=== PATIENT | male | born 1985 | race Caucasian/White ===

== ENCOUNTER 2017-10-22 11:26 | Emergency (ER) | payer BC ==
[2017-10-22 13:23] LABS: BASOPHILS % (AUTO) 0.5 %; EOSINOPHILS # (AUTO) 0.3 10^3/uL (0.0-0.7); EOSINOPHILS % (AUTO) 4.1 %; HGB - HEMOGLOBIN 14.9 g/dL (14.0-18.0); LYMPHOCYTES # (AUTO) 1.2 10^3/uL (1.5-3.5); MEAN CORPUSCULAR HEMOGLOBIN 29.4 pg (27.0-31.0); MEAN CORPUSCULAR HGB CONC 34.5 g/dL (32.0-36.0); MEAN CORPUSCULAR VOLUME 85.2 fL (80.0-94.0); MEAN PLATELET VOLUME 9.9 fL (7.4-11.4); MONOCYTES # (AUTO) 0.8 10^3/uL (0.0-1.0); MONOCYTES % (AUTO) 10.4 %; NEUTROPHILS # (AUTO) 5.3 10^3/uL (1.5-6.6); PLT - PLATELET COUNT 158 10^3/uL (130-450); RED BLOOD COUNT 5.08 10^6/uL (4.70-6.10); RED CELL DISTRIBUTION WIDTH 13.1 % (12.0-15.0); WHITE BLOOD COUNT 7.7 x10^3/uL (4.8-10.8)
[2017-10-22 13:36] LABS: ALBUMIN 5.2 g/dL (3.2-5.5); ALBUMIN/GLOBULIN RATIO 1.9 (1.0-2.2); BILIRUBIN,TOTAL 1.1 mg/dL (0.2-1.0); CALCIUM 9.5 mg/dL (8.5-10.3); CREATININE 0.7 mg/dL (0.6-1.2)
--- NOTE | 2017-10-22 13:39 | ED Physician Documentation ---
PD HPI CHEST PAIN - Stated complaint Stated Complaint: CHEST TIGHTNESS/SOA - Chief complaint Chief Complaint: Cardiac - History obtained from History obtained from: Patient - History of Present Illness Timing - onset: How many days ago (several) Timing - onset during: Light activity Timing - duration: Days (several) Timing - details: Gradual onset, Waxing and waning Quality: Tightness, Aching, Pain Location: Left chest Radiation: No: Jaw, Neck, Back Improved by: Rest, Other (sitting up) Worsened by: Exertion (feels short of breath easily the past few days), Inspiration, Position (lying down). No: Palpation Associated symptoms: Shortness of air, Feeling faint / dizzy. No: Nausea, General Weakness, Palpitations, Cough Similar symptoms before: Has not had sx before Recently seen: Not recently seen, Other (he does not have PMD locally but did call to make appt with Liturgical Music Director and has appt next week.) Review of Systems Constitutional: denies: Fever, Chills, Myalgias Nose: denies: Rhinorrhea / runny nose, Congestion Throat: denies: Sore throat Cardiac: reports: Chest pain / pressure. denies: Palpitations, Pedal edema, Calf pain Respiratory: reports: Dyspnea. denies: Cough, Wheezing GI: denies: Nausea, Vomiting, Diarrhea Neurologic: denies: Generalized weakness, Near syncope (but does feel lightheaded at times), Syncope Endocrine: denies: Weight loss Immunocompromised: denies: Immunocompromised PD PAST MEDICAL HISTORY - Past Medical History Past Medical History: No Cardiovascular: None Respiratory: None Neuro: None Endocrine/Autoimmune: None - Past Surgical History Past Surgical History: No - Present Medications Home Medications: Ambulatory Orders Medication Instructions Recorded Confirmed Albuterol Sulf [Ventolin Hfa 1 - 2 puffs INH Q4HR PRN #1 inhaler 10/22/17 Inhaler] Dexamethasone [Decadron] 4 mg PO DAILY #5 tablet 10/22/17 Naproxen 375 mg PO BID #20 tablet 10/22/17 - Allergies Allergies/Adverse Reactions: Allergies Allergy/AdvReac Type Severity Reaction Status Date / Time No Known Drug Allergies Allergy Verified 10/22/17 11:45 - Social History Does the pt smoke?: No Smoking Status: Never smoker Does the pt drink ETOH?: Yes Does the pt have substance abuse?: No - Family History Family history: denies: CAD, Sudden , Venous thromboembolism - Immunizations Immunizations are current?: No - POLST Patient has POLST: No PD ED PE NORMAL - Vitals Vital signs reviewed: Yes - General General: Alert and oriented X 3, No acute distress, Well developed/nourished - HEENT HEENT: Pharynx benign - Neck Neck: Supple, no meningeal sign, No adenopathy - Cardiac Cardiac: RRR, No murmur, No rub, Other (limited bedside U/S shows normal heart size, symmetric contractions. There is slight rim of hypoechoic proximal field, but not really distal field. Could be mild effusion. ) - Respiratory Respiratory: Clear bilaterally - Abdomen Abdomen: Normal bowel sounds, Soft, Non tender, Non distended Results - Vitals Vitals: Oxygen O2 Source Room air - EKG (time done) 11:38 Rate: Rate (enter#) (61) Rhythm: NSR [place]: Normal Intervals: Normal CO QRS: Normal Ischemia: Normal ST segments, ST elevation c/w repol. No: ST elevation c/w ischemia, ST depression - Labs Labs: Laboratory Tests 10/22/17 10/22/17 10/22/17 13:10 13:10 13:10 WBC 7.7 RBC 5.08 Hgb 14.9 Hct 43.3 MCV 85.2 MCH 29.4 MCHC 34.5 RDW 13.1 Plt Count 158 MPV 9.9 Neut # 5.3 Lymph # 1.2 L [place] # 0.8 Eos # 0.3 Baso # 0.0 Absolute Nucleated RBC 0.00 Nucleated RBC % 0.0 ESR Sodium 138 Potassium 3.5 Chloride 99 L Carbon Dioxide 23 Anion Gap 16.0 H BUN 13 Creatinine 0.7 Estimated GFR (MDRD) 131 Glucose 87 Calcium 9.5 Total Bilirubin 1.1 H AST 112 H ALT 42 Alkaline Phosphatase 54 Troponin I < 0.04 C-Reactive Protein Total Protein 8.0 Albumin 5.2 Globulin 2.8 Albumin/Globulin Ratio 1.9 Lipase 21 L 10/22/17 10/22/17 13:10 13:10 WBC RBC Hgb Hct MCV MCH MCHC RDW Plt Count MPV Neut # Lymph # [place] # Eos # Baso # Absolute Nucleated RBC Nucleated RBC % ESR 4 Sodium Potassium Chloride Carbon Dioxide Anion Gap BUN Creatinine Estimated GFR (MDRD) Glucose Calcium Total Bilirubin AST ALT Alkaline Phosphatase Troponin I C-Reactive Protein < 1.0 Total Protein Albumin Globulin Albumin/Globulin Ratio Lipase - Rads (name of study) chest Radiology: Prelim report reviewed, EMP read contemporaneously (normal exam) PD MEDICAL DECISION MAKING - ED course Complexity details: reviewed results, considered differential, d/w patient Departure - Departure Disposition: 01 Home, Self Care Clinical Impression: Chest pain Qualifiers: Chest pain type: unspecified Qualified Code(s): R07.9 - Chest pain, unspecified Dyspnea Qualifiers: Dyspnea type: dyspnea on exertion Qualified Code(s): R06.09 - Other forms of dyspnea Condition: Stable Record reviewed to determine appropriate education?: Yes Instructions: ED Chest Pain Atypical Unkn Cause Prescriptions: Albuterol Sulf [Ventolin Hfa Inhaler] 1 - 2 puffs INH Q4HR PRN #1 inhaler PRN Reason: Shortness Of Air/Wheezing Dexamethasone [Decadron] 4 mg PO DAILY #5 tablet Naproxen 375 mg PO BID #20 tablet Comments: Your EKG, chest x-ray, labs are normal here. The limited bedside ultrasound appeared symmetric contraction of the heart. I thought there was a suggestion of a mild fluid around the heart sac. This could represent a mild inflammation called pericarditis. This could give you the symptoms you are having and would be treated with anti-inflammatories. Use Naproxen twice daily for a week. I would also consider pulmonary cause with the airways such as allergies or asthma. As such I would use albuterol inhaler 2 puffs 4 times a day for the next week and the dexamethasone as a separate anti-inflammatory. Follow-up with the house detective next week as planned. Return if worsening symptoms or other concerns. Discharge Date/Time: 10/22/17 15:31
[2017-10-22] MEDS ORDERED: DEXAMETHASONE 10 MG/ML VIAL IVP STA (14:00)
--- NOTE | 2017-10-22 14:42 | XRAY Preliminary Report ---
Exam: XR CHEST 2 VIEW X-RAY IMPRESSION: Normal 2-view chest radiography. [facility] SITE ID: [id number]
--- NOTE | 2017-10-22 14:46 | XRAY Report ---
EXAM: CHEST RADIOGRAPHY EXAM DATE: 10/22/2017 02:18 PM. CLINICAL HISTORY: Chest pain left sided. COMPARISON: None. TECHNIQUE: 2 views. FINDINGS: Lungs/Pleura: No focal opacities evident. No pleural effusion. No pneumothorax. Normal volumes. Mediastinum: Heart and mediastinal contours are unremarkable. Other: None. IMPRESSION: Normal 2-view chest radiography. [facility] Referring Provider Line: [phone] SITE ID: [id number]
[2017-10-22] MEDS ORDERED: KETOROLAC 60 MG/2 ML VIAL IVP STA (14:57)
[2017-10-22 15:07] VITALS: BP 106/74
== END 2017-10-22 15:31 | disposition home or self-care (01) ==
LOC: ED 11:26
DX: R07.9 Chest pain, unspecified (principal); R06.09 Other forms of dyspnea
CPT/HCPCS: 36415; 71046; 80053; 83690; 84484; 85025; 85651; 86140; 93005; 96374; 96375; 99283; 99284